=== PATIENT | male | born 1945 | race Caucasian/White ===

== ENCOUNTER 2018-12-18 10:01 | Emergency (ER) | payer MEDICARE, BC ==
[2018-12-18 10:06] VITALS: TEMP 97.8
--- NOTE | 2018-12-18 10:24 | ED ---
General Adult HPI - General Chief complaint: Neuro Symptoms/Deficit Stated complaint: Numbness in Face Time Seen by Provider: 12/18/18 10:06 Source: patient, family, RN notes reviewed Mode of arrival: wheelchair Limitations: no limitations - History of Present Illness Initial comments: Patient is a pleasant 73-year-old male presenting to the emergency Department with complaints of nose paresthesia. Onset of symptoms was this morning. Symptoms lasted around 30 minutes. Symptoms have resolved. Patient denies any numbness of his face except for the nose. Patient states this is towards the left side of the nose. Patient denies any weakness. No confusion. No speech problems. No history of similar symptoms previously. Patient did have recent diagnosis of A. fib and was placed on Eliquis just a few days ago. Patient does have a distant history of A. fib around 10 years ago as well. No chest pain or palpitations or dyspnea. - Related Data Home Medications Medication Instructions Recorded Confirmed Apixaban [Eliquis] 5 mg PO BID 12/18/18 12/18/18 Ascorbic Acid [Vitamin C] 500 mg PO DAILY 12/18/18 12/18/18 Cholecalciferol (Vitamin D3) 2,000 unit PO DAILY 12/18/18 12/18/18 [Vitamin D3] Cyanocobalamin [Vitamin B-12] 500 mcg PO DAILY 12/18/18 12/18/18 Focus 1 tab PO DAILY 12/18/18 12/18/18 Metoprolol Tartrate [Lopressor] 25 mg PO DAILY 12/18/18 12/18/18 Simvastatin [Zocor] 20 mg PO HS 12/18/18 12/18/18 Ubidecarenone [Co Q-10] 100 mg PO DAILY 12/18/18 12/18/18 Vitamin E 100 unit PO DAILY 12/18/18 12/18/18 Allergies Allergy/AdvReac Type Severity Reaction Status Date / Time No Known Allergies Allergy Verified 12/18/18 10:23 Review of Systems ROS Statement: Those systems with pertinent positive or pertinent negative responses have been documented in the HPI. ROS Other: All systems not noted in ROS Statement are negative. Constitutional: Denies: fever Eyes: Denies: eye pain ENT: Denies: ear pain Respiratory: Denies: cough, dyspnea Cardiovascular: Denies: chest pain, palpitations Endocrine: Denies: fatigue Gastrointestinal: Denies: abdominal pain Genitourinary: Denies: dysuria Musculoskeletal: Denies: back pain Skin: Denies: rash Neurological: Reports: as per HPI, paresthesias. Denies: headache, weakness, confusion Past Medical History Past Medical History: Atrial Fibrillation History of Any Multi-Drug Resistant Organisms: None Reported Past Surgical History: Orthopedic Surgery Past Psychological History: No Psychological Hx Reported Smoking Status: Never smoker Past Alcohol Use History: None Reported Past Drug Use History: None Reported General Exam Limitations: no limitations General appearance: alert, in no apparent distress Head exam: Present: atraumatic Eye exam: Present: normal appearance, PERRL, EOMI. Absent: nystagmus ENT exam: Present: normal oropharynx Neck exam: Present: normal inspection Respiratory exam: Present: normal lung sounds bilaterally Cardiovascular Exam: Present: regular rate, normal rhythm GI/Abdominal exam: Present: soft. Absent: tenderness Extremities exam: Present: normal inspection. Absent: pedal edema, calf tenderness Neurological exam: Present: alert, oriented X3, CN II-XII intact. Absent: motor sensory deficit Expanded Neurological exam: Present: protecting the airway Speech: Present: fluid speech Cranial nerves: EOM's Intact: Normal, Facial Sensation: Normal Sensory exam: Upper Extremity Light Touch: Normal, Lower Extremity Light Touch: Normal Motor strength exam: RUE: 5, LUE: 5, RLE: 5, LLE: 5 Eye Response: (4) open spontaneously Motor Response: (6) obeys commands Verbal Response: (5) oriented Psychiatric exam: Present: normal affect, normal mood Skin exam: Present: normal color Course Vital Signs 12/18/18 12/18/18 10:03 10:05 Temperature 97.8 F Pulse Rate 51 L 52 L Respiratory 18 18 Rate Blood Pressure 137/78 113/69 O2 Sat by Pulse 98 98 Oximetry EKG Findings - EKG Comments: EKG Findings:: Sinus bradycardia 50. IN 186. QRS 88. QT 434. QTC 395. Left axis. Normal QRS. No acute ST change. Medical Decision Making - Medical Decision Making Patient reevaluated and remained symptom-free. Patient and family updated on results and need for follow-up. - Lab Data Result diagrams: 12/18/18 10:00 12/18/18 10:00 Lab Results 08/22/19 08/22/19 08/22/19 Range/Units 10:00 10:00 10:00 WBC 9.0 (3.8-10.6) k/uL RBC 4.85 (4.30-5.90) m/uL Hgb 14.6 (13.0-17.5) gm/dL Hct 43.9 (39.0-53.0) % MCV 90.5 (80.0-100.0) fL MCH 30.2 (25.0-35.0) pg MCHC 33.3 (31.0-37.0) g/dL RDW 15.0 (11.5-15.5) % Plt Count 201 (150-450) k/uL Neutrophils % 77 % Lymphocytes % 13 % Monocytes % 4 % Eosinophils % 2 % Basophils % 1 % Neutrophils # 6.9 (1.3-7.7) k/uL Lymphocytes # 1.2 (1.0-4.8) k/uL Monocytes # 0.4 (0-1.0) k/uL Eosinophils # 0.2 (0-0.7) k/uL Basophils # 0.1 (0-0.2) k/uL PT 10.2 (9.0-12.0) sec INR 0.9 (<1.2) APTT 26.3 (22.0-30.0) sec Sodium 139 (137-145) mmol/L Potassium 4.2 (3.5-5.1) mmol/L Chloride 104 (98-107) mmol/L Carbon Dioxide 27 (22-30) mmol/L Anion Gap 8 mmol/L BUN 21 H (9-20) mg/dL Creatinine 0.89 (0.66-1.25) mg/dL Est GFR (CKD-EPI)AfAm >90 (>60 ml/min/1.73 sqM) Est GFR (CKD-EPI)NonAf 85 (>60 ml/min/1.73 sqM) Glucose 93 (74-99) mg/dL Calcium 8.8 (8.4-10.2) mg/dL Total Bilirubin 0.7 (0.2-1.3) mg/dL AST 29 (17-59) U/L ALT 31 (21-72) U/L Alkaline Phosphatase 53 (38-126) U/L Total Protein 6.7 (6.3-8.2) g/dL Albumin 4.1 (3.5-5.0) g/dL - Radiology Data Radiology results: report reviewed (Computed tomography scan of brain shows no acute process. Ultrasound leg negative for DVT.), image reviewed (Chest x-ray shows atelectasis) Disposition Clinical Impression: Paresthesia Disposition: HOME SELF-CARE Condition: Stable Instructions (If sedation given, give patient instructions): Paresthesia (ED) Additional Instructions: Please follow-up with primary care physician in the next day or 2 for recheck. Please also follow-up with community living specialist in the next couple days for recheck. Have community living specialist continue to monitor heart rate. You may need medication c hange. Return for weakness, loss of sensation, confusion, worsening symptoms or other concerns. Is patient prescribed a controlled substance at d/c from ED?: No Referrals: Aisha Flores DO [Primary Care Provider] - 1-2 days Time of Disposition: 11:48
[2018-12-18 10:37] LABS: Basophils # (A) 0.1 k/uL (0-0.2); Basophils % (A) 1 %; Eosinophils # (A) 0.2 k/uL (0-0.7); Eosinophils % (A) 2 %; HCT 43.9 % (39.0-53.0); HGB 14.6 gm/dL (13.0-17.5); Lymphocytes # (A) 1.2 k/uL (1.0-4.8); Lymphocytes % (A) 13 %; MCH 30.2 pg (25.0-35.0); MCHC 33.3 g/dL (31.0-37.0); MCV 90.5 fL (80.0-100.0); Mean Platelet Volume 7.7; Monocytes # (A) 0.4 k/uL (0-1.0); Monocytes % (A) 4 %; Neutrophils # (A) 6.9 k/uL (1.3-7.7); Neutrophils % (A) 77 %; Platelet Count 201 k/uL (150-450); RBC 4.85 m/uL (4.30-5.90)
[2018-12-18 10:47] LABS: ALT 31 U/L (21-72); AST 29 U/L (17-59); African American GFR (CKD) >90 (>60 ml/min/1.73 sqM); Albumin 4.1 g/dL (3.5-5.0); Alkaline Phosphatase 53 U/L (38-126); Anion Gap 8 mmol/L; Blood Urea Nitrogen 21 mg/dL (9-20); Calcium 8.8 mg/dL (8.4-10.2); Carbon Dioxide 27 mmol/L (22-30); Chloride 104 mmol/L (98-107); Glucose 93 mg/dL (74-99); Potassium 4.2 mmol/L (3.5-5.1); Sodium 139 mmol/L (137-145); Total Bilirubin 0.7 mg/dL (0.2-1.3); Total Protein 6.7 g/dL (6.3-8.2)
[2018-12-18 10:48] LABS: INR 0.9 (<1.2); Partial Thromboplastin Time 26.3 sec (22.0-30.0); Prothrombin Time 10.2 sec (9.0-12.0)
--- NOTE | 2018-12-18 10:50 | CT ---
EXAMINATION TYPE: CT brain wo con DATE OF EXAM: 12/18/2018 HISTORY: Nasal region numbness. No history of CVA/TIA CT DLP: 1099.4 mGycm. Automated Exposure Control for Dose Reduction was Utilized. TECHNIQUE: CT scan of the head is performed without contrast. COMPARISON: None. FINDINGS: There is no acute intracranial hemorrhage or midline shift identified. Ventricles and sul ci are normal in size for patient's age. Quinonez-white matter differentiation fairly well-preserved. Th e globes are intact and the visualized sinuses are clear. IMPRESSION: No acute intracranial hemorrhage or midline shift.
--- NOTE | 2018-12-18 10:51 | XR ---
EXAMINATION TYPE: XR chest 2V DATE OF EXAM: 12/18/2018 COMPARISON: Chest x-ray August 01, 2011. HISTORY: Altered mental status and weakness. TECHNIQUE: Frontal and lateral views of the chest are obtained. FINDINGS: There is left greater than right bibasilar opacities. Suspect small to tiny left pleural effusion. The cardiac silhouette size is mildly enlarged. The osseous structures are intact. IMPRESSION: Mild cardiomegaly with patchy left greater than right bibasilar acute infiltrate and/or atelectasis and suspected small to tiny left pleural effusion.
--- NOTE | 2018-12-18 11:20 | US ---
EXAMINATION TYPE: US venous doppler duplex LE LT DATE OF EXAM: 12/18/2018 11:12 AM COMPARISON: NONE CLINICAL HISTORY: Pain. Left leg pain. SIDE PERFORMED: Left TECHNIQUE: The lower extremity deep venous system is examined utilizing real time linear array sonog patrick with graded compression, doppler sonography and color-flow sonography. VESSELS IMAGED: External Iliac Vein (EIV) Common Femoral Vein Deep Femoral Vein Greater Saphenous Vein * Femoral Vein Popliteal Vein Small Saphenous Vein * Proximal Calf Veins (* superficial vessels) Left Leg: Negative for DVT No evidence of DVT left leg. IMPRESSION: 1. Left lower extremity ultrasound negative for deep venous thrombosis.
[2018-12-18 12:25] VITALS: BP 123/78; PULSE 48; RESP 16
== END 2018-12-18 12:20 | disposition home or self-care (01) ==
LOC: EC 10:01
DX: R20.2 Paresthesia of skin (principal); R20.0 Anesthesia of skin; I48.91 Unspecified atrial fibrillation; Z79.01 Long term (current) use of anticoagulants; Z79.899 Other long term (current) drug therapy
CPT/HCPCS: 36415; 70450; 71046; 80053; 85025; 85610; 85730; 93005; 99284

== ENCOUNTER → 2018-12-24 | Outpatient (CLI) | payer MEDICARE, BC ==
[2018-12-24 16:06] LABS: T4, Free (Free Thyroxine) 1.2 ng/dL (0.80-1.80)
== END | disposition home or self-care (01) ==
LOC: LABWHC1 10:04
PROVIDERS: ATTEND Internal Medicine Interventional Cardiology
DX: I48.91 Unspecified atrial fibrillation (principal); E03.9 Hypothyroidism, unspecified
CPT/HCPCS: 36415; 84439; 84443

== ENCOUNTER → 2019-01-02 | Outpatient (CLI) | payer MEDICARE, BC ==
[2019-01-02 16:07] LABS: T4, Free (Free Thyroxine) 1.2 ng/dL (0.80-1.80)
== END | disposition home or self-care (01) ==
LOC: LABWHC1 09:03
PROVIDERS: ATTEND Nurse Practitioner
DX: I48.91 Unspecified atrial fibrillation (principal)
CPT/HCPCS: 36415; 84439; 84443

== ENCOUNTER → 2019-02-17 | Outpatient (CLI) | payer MEDICARE, BC | LOC: LABWHC1 11:39 | PROVIDERS: ATTEND Orthopaedic Surgery | DX: M17.12 Unilateral primary osteoarthritis, left knee (principal) | CPT/HCPCS: 36415; 85652; 86140 ==

== ENCOUNTER 2023-07-03 08:29 | Emergency (ER) | payer MEDICARE, BC ==
--- NOTE | 2023-07-03 09:20 | ED ---
General Adult HPI - General Chief complaint: ENT Stated complaint: Cough, pain in throat Time Seen by Provider: 07/03/23 08:50 Source: patient, RN notes reviewed, old records reviewed Mode of arrival: ambulatory Limitations: no limitations - History of Present Illness Initial comments: 77-year-old male with foreign body sensation in the throat. Patient states 5 days ago he was eating Cheerios and believes he got a cheerio stuck. He states this has happened in the past but he is typically able to cough it out. He believes is on the left side. He had contacted the ear nose and throat doctor and staff had sent the patient to the emergency department for evaluation. Patient has no difficulty swallowing or breathing. - Related Data Home Medications Medication Instructions Recorded Confirmed Apixaban [Eliquis] 5 mg PO BID 12/18/18 12/18/18 Ascorbic Acid [Vitamin C] 500 mg PO DAILY 12/18/18 12/18/18 Cholecalciferol (Vitamin D3) 2,000 unit PO DAILY 12/18/18 12/18/18 [Vitamin D3] Cyanocobalamin [Vitamin B-12] 500 mcg PO DAILY 12/18/18 12/18/18 Focus 1 tab PO DAILY 12/18/18 12/18/18 Metoprolol Tartrate [Lopressor] 25 mg PO DAILY 12/18/18 12/18/18 Simvastatin [Zocor] 20 mg PO HS 12/18/18 12/18/18 Ubidecarenone [Co Q-10] 100 mg PO DAILY 12/18/18 12/18/18 Vitamin E (Dl,Tocopheryl Acet) 100 unit PO DAILY 12/18/18 12/18/18 [Vitamin E] Allergies Allergy/AdvReac Type Severity Reaction Status Date / Time No Known Allergies Allergy Verified 07/03/23 08:49 Review of Systems ROS Statement: Those systems with pertinent positive or pertinent negative responses have been documented in the HPI. ROS Other: All systems not noted in ROS Statement are negative. Past Medical History Past Medical History: Atrial Fibrillation History of Any Multi-Drug Resistant Organisms: None Reported Past Surgical History: Orthopedic Surgery Past Psychological History: No Psychological Hx Reported Smoking Status: Never smoker Past Alcohol Use History: None Reported Past Drug Use History: None Reported General Exam Limitations: no limitations General appearance: alert, in no apparent distress Head exam: Present: atraumatic, normocephalic Eye exam: Present: normal appearance, PERRL ENT exam: Present: normal exam, normal oropharynx Neck exam: Present: normal inspection. Absent: tenderness, meningismus Respiratory exam: Present: normal lung sounds bilaterally. Absent: respiratory distress, wheezes, stridor Cardiovascular Exam: Present: regular rate, normal rhythm GI/Abdominal exam: Present: soft. Absent: distended, tenderness, guarding Extremities exam: Present: normal inspection, normal capillary refill. Absent: pedal edema Neurological exam: Present: alert, oriented X3, CN II-XII intact. Absent: motor sensory deficit Psychiatric exam: Present: normal affect, normal mood Skin exam: Present: warm, dry, intact. Absent: cyanosis, diaphoretic, erythema Course Vital Signs 07/03/23 08:46 Temperature 98.8 F Pulse Rate 58 L Respiratory 16 Rate Blood Pressure 131/73 O2 Sat by Pulse 95 Oximetry Medical Decision Making - Medical Decision Making Was pt. sent in by a medical professional or institution (, PA, MANAGER FUND, urgent care, hospital, or skilled nursing...) When possible be specific @ -No Did you speak to anyone other than the patient for history (EMS, parent, family, police, friend...)? What history was obtained from this source @ -No Did you review nursing and triage notes (agree or disagree)? Why? @ -I reviewed and agree with nursing and triage notes Were old charts reviewed (outside hosp., previous admission, EMS record, old EKG, old radiological studies, urgent care reports/EKG's, skilled nursing records)? Report findings @ -No old charts were reviewed Differential Diagnosis (chest pain, altered mental status, abdominal pain women, abdominal pain men, vaginal bleeding, weakness, fever, dyspnea, syncope, headache, dizziness, GI bleed, back pain, seizure, CVA, palpatations, mental health, musculoskeletal)? @Esophageal foreign body, retained upper airway foreign body] EKG interpreted by me (3pts min.). @ -As above X-rays interpreted by me (1pt min.). @ -None done CT interpreted by me (1pt min.). @ -None done U/S interpreted by me (1pt. min.). @ -None done What testing was considered but not performed or refused? (CT, X-rays, U/S, labs)? Why? @ -None What meds were considered but not given or refused? Why? @ -None Did you discuss the management of the patient with other professionals (professionals i.e. , PA, MANAGER FUND, lab, RT, psych nurse, social service manager, sheet catcher, teacher, founder and chief technical officer, skilled nursing case manager)? Give summary @ -No Was smoking cessation discussed for >3mins.? @ -No Was critical care preformed (if so, how long)? @ -No Were there social determinants of health that impacted care today? How? (Homelessness, low income, unemployed, alcoholism, drug addiction, transportation, low edu. Level, literacy, decrease access to med. care, [facility], rehab)? @ -No Was there de-escalation of care discussed even if they declined (Discuss DNR or withdrawal of care, Hospice)? DNR status @ -No What co-morbidities impacted this encounter? (DM, HTN, Smoking, COPD, CAD, Cancer, CVA, ARF, Chemo, Hep., AIDS, mental health diagnosis, sleep apnea, morbid obesity)? @ -None Was patient admitted / discharged? Hospital course, mention meds given and route, prescriptions, significant lab abnormalities, going to OR and other pertinent info. @ -77-year-old male with foreign body sensation, upper airway. This was a cheerio that the patient believes stuck 5 days ago. Patient has been eating and drinking since then. No stridor. Nothing visualized on exam. I did discuss case with Dr. Kay who recommends ice water gargle and follow-up in the office tomorrow. Patient is given return parameters. Undiagnosed new problem with uncertain prognosis? @ -No Drug Therapy requiring intensive monitoring for toxicity (Heparin, Nitro, Insulin, Cardizem)? @ -No Were any procedures done? @ -No Diagnosis/symptom? @ -Oropharynx foreign body sensation Acute, or Chronic, or Acute on Chronic? @ -Acute Uncomplicated (without systemic symptoms) or Complicated (systemic symptoms)? @ -Default Side effects of treatment? @ -No Exacerbation, Progression, or Severe Exacerbation? @ -No Poses a threat to life or bodily function? How? (Chest pain, [place], [place], pneumonia, PE, COPD, DKA, ARF, appy, cholecystitis, CVA, Diverticulitis, Homicidal, Suicidal, threat to staff... and all critical care pts) @Low risk at this time Disposition Clinical Impression: Sore throat Disposition: HOME SELF-CARE Condition: Good Additional Instructions: Please gargle with ice water and follow-up with Dr. Kay tomorrow Is patient prescribed a controlled substance at d/c from ED?: No Referrals: Aisha Flores DO [Primary Care Provider] - 1-2 days Time of Disposition: 09:38
[2023-07-03 10:27] VITALS: BP 131/78; PULSE 86; RESP 18; TEMP 97.9
== END 2023-07-03 09:57 | disposition home or self-care (01) ==
LOC: EC 08:29
DX: J02.9 Acute pharyngitis, unspecified (principal); I48.91 Unspecified atrial fibrillation; Z79.01 Long term (current) use of anticoagulants
CPT/HCPCS: 99283

== ENCOUNTER → 2024-10-12 | Outpatient (CLI) | payer MEDICARE, BC ==
--- NOTE | 2024-10-12 17:23 | US ---
EXAMINATION TYPE: US bladder DATE OF EXAM: 10/12/2024 COMPARISON: NONE CLINICAL INDICATION: Male, 79 years old with history of D29.4 ENLARGED PROSTATE; TECHNIQUE: Grayscale and color doppler imaging of the bilateral kidneys and urinary bladder. FINDINGS: No evidence for bladder wall thickening. Incomplete distention of the urinary bladder. Prostate gland is enlarged. EXAM MEASUREMENTS: Post Void Residual Volume: 1.9 mL SOFT WORK WRAPPER LAYER AND EXAMINER NOTES: WNL as visualized Color Doppler performed to assess ureteral jets. Bilateral Jets seen: Yes Normal Post Void Residual (less than 50ml): Yes IMPRESSION: 1. No evidence for acute process. 2. Post void residual less than 50 mL. 3. Prostatomegaly suggested correlate with serum PSA [facility], , 10/12/2024 5:21 PM
--- NOTE | 2024-10-12 17:23 | US ---
EXAMINATION TYPE: US prostate transrectal DATE OF EXAM: 10/12/2024 COMPARISON: NONE CLINICAL INDICATION: Male, 79 years old with history of AD29.4 ENLARGED PROSTATE; enlarged prostate TECHNIQUE: Grayscale and color Doppler imaging of the prostate gland. This examination was performed using the transrectal probe. EXAM MEASUREMENTS: Gland Size: 4.5 x 3.1 x 5.3 cm Volume: 38.7 Predicted PSA: 4.6 Actual PSA (if available):1.83 Calcifications visualized. IMPRESSION: 1. No suspicious masses visualized. 2. Note that prostate MRI is a more sensitive exam for the detection of clinically significant prost ate adenocarcinoma. 3. Prostatomegaly correlate with serum PSA. Predicted PSA = volume x 0.12 ng/ml Calculated Volume = 0.5236 x L x W x H [facility], , 10/12/2024 5:21 PM
== END | disposition home or self-care (01) ==
LOC: RADUSWWP 15:50
PROVIDERS: ATTEND Family Medicine
DX: D29.4 Benign neoplasm of scrotum (principal); N40.0 Benign prostatic hyperplasia without lower urinary tract symptoms
CPT/HCPCS: 76857; 76872

== ENCOUNTER 2024-10-14 11:19 | Day surgery (SDC) | payer MEDICARE, BC ==
[~2024-10-14 11:19] MED LIST: LACTATED RINGERS 1,000 ML IV SCH
[2024-10-14 12:24] VITALS: TEMP 97.1
[2024-10-14] MEDS: IV FLUID CONTINUATION 500 ML IV ONE (12:25)
[2024-10-14] MEDS: SODIUM CHLORIDE 0.9% 500 ML 500 ML IV SCH (12:25)
[2024-10-14] MEDS ORDERED: LIDOCAINE 1% INJ 10MG/ML (20 ML MDV) ONE (12:31)
[2024-10-14] MEDS ORDERED: PROPOFOL 10 MG/ML 20 ML VIAL IV ONE (12:31)
[2024-10-14] MEDS: IV FLUID CONTINUATION 1,000 ML IV ONE (12:42)
[2024-10-14 13:23] VITALS: RESP 16
[2024-10-14 13:35] VITALS: BP 125/81
[2024-10-14 13:43] VITALS: PULSE 53
--- NOTE | 2024-10-15 00:09 | CE ---
CARDIAC ELECTROPHYSIOLOGY REPORT PROCEDURES PERFORMED: Electrical cardioversion. Date of procedure: 10/14/24 INDICATION: Persistent symptomatic atrial fibrillation. CLINICAL INFORMATION: Mr. Jaya Appiah is an 79-year-old gentleman with a known history of hypertension, noncritical CAD, paroxysmal atrial fibrillation, who went into atrial fibrillation about 2 weeks ago and has shortness of breath and decreased exercise capacity. After starting him on amiodarone because of persistent atrial fibrillation, I recommended electrical cardioversion. He was brought in for the procedure. PROCEDURE NOTE: Under the influence of [id number] intravenous anesthetic agent with the attendance of the anesthesiologist, a single shock was delivered with anterior and posterior patches at 200 joules. The patient converted to sinus rhythm and remained hemodynamically stable and neurologically intact. This was a successful electrical cardioversion. The patient will be discharged later on today and I will see him in the office on Saturday as scheduled at 2:30 p.m. GREY / BETH: [id number] / MTDD
== END 2024-10-14 13:57 | disposition home or self-care (01) ==
LOC: OR 11:19
PROVIDERS: ATTEND Internal Medicine Interventional Cardiology
DX: I48.11 Longstanding persistent atrial fibrillation (principal); E78.00 Pure hypercholesterolemia, unspecified; G47.33 Obstructive sleep apnea (adult) (pediatric); M19.90 Unspecified osteoarthritis, unspecified site; I10 Essential (primary) hypertension; I25.10 Atherosclerotic heart disease of native coronary artery without angina pectoris; Z79.01 Long term (current) use of anticoagulants; Z79.899 Other long term (current) drug therapy; Z96.659 Presence of unspecified artificial knee joint
CPT/HCPCS: 92960